=== PATIENT | male | born 1965 | race Caucasian/White ===

== ENCOUNTER → 2018-01-17 07:22 | Outpatient (CLI) | payer OTHER ==
[~2018-01-17 07:22] MED LIST: PERCOCET 10/3251 TA1 PO; VISTARIL50 MG PO; ZOFRAN ODT4 MG/UDTAB PO
[2018-01-28 09:58] VITALS: BMI 27.2
== END | disposition home or self-care (01) ==
LOC: D.MRI 07:22
DX: M25.512 Pain in left shoulder (principal)

== ENCOUNTER 2018-01-28 08:05 | Day surgery (SDC) | payer OTHER ==
[~2018-01-28] VITALS: Ht 182.9 cm; Wt 90.7 kg
--- NOTE | ~2018-01-28 | OP ---
PATIENT NAME: RAJIV ZHOU MEDICAL RECORD: [id number] :69 LOCATION:[facility] ADMISSION DATE: SURGEON: BAR PIÑA DO DATE OF OPERATION: 01/28/2018 PROCEDURE PERFORMED: Left shoulder arthroscopy with subacromial decompression, distal clavicle excision, open rotator cuff repair, and bicep tenodesis. PREOPERATIVE DIAGNOSES: Left shoulder rotator cuff tear, subacromial impingement, AC joint arthritis and labral tear, SLAP lesion. POSTOPERATIVE DIAGNOSES: Left shoulder rotator cuff tear, subacromial impingement, AC joint arthritis and labral tear, SLAP lesion. INDICATIONS: Mr. Zhou is a 52-year-old male that presented to my office last week, who had had an MRI of his left shoulder. He had injured it sometime ago and had pain with overhead lifting and anytime he moved his left shoulder. He did do a lot of overhead work and was tired of dealing with the pain. He had injections previously and tried some physical therapy to no avail and wanted something done knowing that he had a rotator cuff tear on that shoulder. He was given the risks and benefits of the procedure including damage to nerves and vessels, axillary nerve in his shoulder, and bleeding as well as the musculocutaneous nerve at the bicep tenodesis site. He was okay with those risks and consented to the procedure. SURGEON: Bar Piña DO DESCRIPTION OF PROCEDURE: The patient was given a block preoperatively, taken to the operative suite, laid in the right lateral recumbent position with the left arm prepped and draped. After it was prepped and draped, it was hung for the lateral position of the scope. The patient had been intubated prior to this. He was given clindamycin preoperatively. After this was done, a timeout was performed, everyone was in agreement as to correct side, site, patient, and procedure. The shoulder was then entered with an 18-gauge spinal needle and inflated with 60 mL of normal saline and then the posterior portal was established with an 11-blade scalpel and a trocar was entered into the shoulder joint itself. The anterior portal was then established after entry into the shoulder joint. The bicep tendon was intact; however, the labrum at the superior portion of the labrum had been torn and was irritated, so biceps tendinosis was done at that time. The rotator cuff was checked. Subscapularis tendon was intact and it appeared to be the supraspinatus as well. We then went to the subacromial space and saw a tear on the bursal side, which was full thickness. This was debrided and the shaver was used to decorticate the humerus in order to prepare a bleeding bone bed for the rotator cuff repair. The subacromial decompression was done at that time and distal clavicle excision was done as well, opening up the AC joint, approximately 7 mm and ensuring there were no spurs in the joint. This was done through the lateral portal, which was established. We then removed the scope and opened the lateral shoulder about a 5 cm incision. Careful dissection was made down through the deltoid fascia and the deltoid muscle split. Then, the rotator cuff tear was exposed and seen to have good mobility. A SpeedBridge device was used at that time. Anchors were placed at the articular margin of the humeral head and then the Scorpion was used to bite sutures through and the free sutures were tied down pulling the rotator cuff to the anchors and then the lateral anchors were put into place crossing one of the FiberTapes from each anterior and posterior anchor site. OPERATIVE REPORT [id number] RAJIV ZHOU This had a very good fixation and compression of the rotator cuff. It was inspected and seemed to have a good repair and the picture was taken. The wound was then thoroughly irrigated. I then moved to the anterior portion of the humerus and an incision was made just below the pec on the skin. Dissection was made down to the humerus itself and the bicep tendon was encountered and removed from the wound, whipstitched, and then a single button was placed into the unicortical humerus. The biceps tendon was cinched down the humerus at that time and a free needle was used to oversew it and over tied securing it into place. After this was done, that was irrigated thoroughly the wound for the bicep tendon, this was closed with 2-0 Vicryl inverted interrupted fashion. The deltoid fascia, the open rotator cuff repair was also closed on the skin with 2-0 Vicryl inverted interrupted fashion, 4-0 Monocryl was then ran on the skin in each of those sites and 4-0 Monocryl was used to close the anterior and posterior portals. After that was done, Dermabond was placed on the incision sites. Adaptic and 4 x 4s were then placed on the shoulder. Then, the patient was awakened and taken to recovery, placed in a sling in stable condition. Blood loss was minimal. Complications were none. TRANSINT:[id number] Voice Confirmation ID: [id number] DOCUMENT ID: [id number] BAR PIÑA DO at 1826 CC: [id number] DICTATION DATE: 01/28/18 1357 ACQUISITIONS LIBRARIAN: 01/28/18 1430 [facility] 01/28/18 [id number] [place] [address]
[2018-01-28 09:58] VITALS: BP 131/92; Ht 182.9 cm; Wt 90.7 kg
[2018-01-28] MEDS ORDERED: PERCOCET 10/3251 TA1 PO (13:48)
[2018-01-28] MEDS ORDERED: VISTARIL50 MG PO (13:48)
[2018-01-28] MEDS ORDERED: ZOFRAN ODT4 MG/UDTAB PO (14:04)
== END 2018-01-28 15:45 | disposition home or self-care (01) ==
LOC: D.OPS 08:05 → D.PAN 09:30 → D.OPS 10:15
DX: M75.122 Complete rotator cuff tear or rupture of left shoulder, not specified as traumatic (principal); M75.42 Impingement syndrome of left shoulder; M13.812 Other specified arthritis, left shoulder; S43.432A Superior glenoid labrum lesion of left shoulder, initial encounter; X58.XXXA Exposure to other specified factors, initial encounter; Z01.812 Encounter for preprocedural laboratory examination

== ENCOUNTER → 2018-05-20 09:40 | Day surgery (SDC) | payer OTHER ==
[~2018-05-20] VITALS: Ht 182.9 cm; Wt 90.7 kg
--- NOTE | ~2018-05-20 | OP ---
PATIENT NAME: RAJIV ZHOU MEDICAL RECORD: [id number] :69 LOCATION:[facility] ADMISSION DATE: SURGEON: BAR PIÑA DO DATE OF OPERATION: 05/20/2018 PROCEDURES PERFORMED: Left shoulder arthroscopy with lysis of adhesions and manipulation under anesthesia. 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 POSTOPERATIVE DIAGNOSIS: Adhesive capsulitis of left shoulder after rotator cuff repair. INDICATIONS: Mr. Zhou is a 52-year-old male who had a rotator cuff repair approximately 3 months ago. He was doing very well postoperatively until about a month ago when he lost a lot of motion and had more pain with motion. He tried with therapy for the last 2-3 weeks and could not get his motion back. Since he was having that much trouble, he could only forward flex to approximately 85-90 degrees. He had no external rotation at the side and abduction was about 80 degrees as well. All motions were very painful. He could only internally rotate to hip. Seeing this and after talking with the patient, telling him that he is at the critical juncture, that he would need manipulation and lysis of adhesions. I informed him of risks and benefits including fracture; continued pain; and that since he had had rotator cuff repair, this procedure may not resolve all of his pain and he would have to work very hard with therapy right away in order to maintain what he was manipulated to today. He was okay with that and understood the risks including infection, bleeding, damage to nerve and vessels, and consented to the procedure. SURGEON: Bar Piña DO DESCRIPTION OF PROCEDURE: The patient was given interscalene block by anesthesia in the preoperative area, taken to the operative suite, laid in the right lateral decubitus position with axillary roll under the axilla, and then the left shoulder was prepped and draped in sterile fashion. The patient was given 900 mg of clindamycin preoperatively for antibiotic. Time-out was performed and everyone was in agreement with correct side, site, and patient. Once he had been prepped and draped, 60 mL of fluid was insufflated into the joint. The joint was then entered with the trocar and quite thick capsule was seen anteriorly. The anterior portal was then established with a #18 blade spinal needle and then a #11 blade scalpel and a trocar. The burner was brought in and the rotator interval was opened with the burner. Shaver was also brought in to debride any loose bodies over there in the joint. There was some soft tissue in there. The rotator cuff was inspected on the articular side and seemed to be intact. The scope was then taken out and put into the subacromial space and there were many, many adhesions in the subacromial space some of which you could barely see with the camera. The lateral portal was then established with the 18-gauge spinal needle and a #11 blade scalpel. The burner was brought in and cleaned out those adhesions. Once the adhesions have been cleared off in the subacromial space, the camera was removed and so was the burner. The shoulder was then manipulated first with external rotation at the side. He was at 0 prior to this and then, with external rotation, he got to 90 degrees. The shoulder was then abducted to 90 degrees and pushed a little further to about 100 degrees. The shoulder gave way and he was able to abduct at that time to OPERATIVE REPORT [id number] RAJIV ZHOU R approximately 130 degrees. Then, in abduction, external rotation was obtained to 90 and internal rotation to 90 as well. Then, forward flexion was done and 180 degrees was obtained of forward flexion. The shoulder was then ranged one more time and felt to be in good position and had good range of motion. A 10 mL of 0.5% Marcaine with epinephrine was then injected around the shoulder joint and the incision. The incision was then closed with 4-0 Monocryl in inverted interrupted fashion. Dermabond, Telfa, and Tegaderm were then placed on the incisions. The patient was awakened and taken to recovery in stable condition. BLOOD LOSS: Minimal. COMPLICATIONS: None. TRANSINT:[id number] Voice Confirmation ID: [id number] DOCUMENT ID: [id number] BAR PIÑA DO at 1037 CC: [id number] DICTATION DATE: 05/20/18 1433 BALL RACKER: 05/20/18 1657 [facility] 05/20/18 [id number] [place] [address]
[~2018-05-20 09:40] MED LIST changes: +NORCO 10-325 TA1 TAB PO; +PERCOCET 7.5/321 TAB PO; +TORADOL10 MG PO
[2018-05-20 10:45] VITALS: BP 148/95; Ht 182.9 cm; Wt 90.7 kg
== END | disposition home or self-care (01) ==
LOC: D.OPS 09:15 → D.PAN 09:15 → D.OPS 09:40
DX: M75.02 Adhesive capsulitis of left shoulder (principal); M96.89 Other intraoperative and postprocedural complications and disorders of the musculoskeletal system; Z01.812 Encounter for preprocedural laboratory examination